=== PATIENT | female | born 1985 | race Caucasian/White ===

== ENCOUNTER 2016-11-07 03:58 | Emergency (ER) | payer MEDICAID ==
[2016-11-07] MEDS ORDERED: NAPROXEN 250 MG TABLET PO ONE (04:17)
--- NOTE | 2016-11-07 04:22 | Emergency Department Record ---
History of Present Illness - General Chief Complaint: Chest Pain Stated Complaint: CHEST PAIN/HARD TO BREATH Time Seen by Provider: 11/07/16 04:16 Source: Patient Mode of Arrival: Ambulatory Limitations: No limitations - History of Present Illness Initial Comments: 31 yo female presents to ED with a CC of mid-sternal chest pain that began 2 hours ago, woke her up from sleep. Patient reports pain with inspiration and trunk movement. Patient denies health problems at her baseline, and denies any fevers, chills, or recent illness. Patient denies h/o DVT, denies tara swelling or pain, denies recent surgery, and denies OCPs. MD Complaint: Chest pain Onset/Timin -: Hour(s) Onset: Awoke with symptoms Pain Location: Substernal Severity scale (1-10): 7 Quality: Sharp Consistency: Constant, Getting worse Worsens With: Inspiration - Related Data On Oral Contraceptives: No Previous Rx's Medication Instructions Recorded Naproxen [Naprosyn] 500 mg PO Q12H #30 tab. 11/07/16 Allergies Allergy/AdvReac Type Severity Reaction Status Date / Time No Known Drug Allergies Allergy Verified 02/13/14 21:06 Travel Screening - Travel/Exposure Within Last 30 Days Have you traveled within the last 30 days?: No Review of Systems Constitutional: Denies: Chills, Fever, Malaise, Night sweats Eyes: Denies: Eye discharge, Eye pain, Photophobia ENT: Denies: Congestion, Ear pain, Epistaxis Respiratory: Denies: Cough, Dyspnea Cardiovascular: Reports: Chest pain. Denies: Dyspnea on exertion, Palpitations Endocrine: Denies: Fatigue, Heat or cold intolerance Gastrointestinal: Denies: Abdominal pain, Nausea, Vomiting Genitourinary: Denies: Dysuria, Frequency, Hematuria, Incontinence Musculoskeletal: Denies: Arthralgia, Back pain, Gout, Joint swelling Skin: Denies: Bruising, Change in color, Change in hair/nails Neurological: Denies: Abnormal gait, Confusion, Headache, Seizure Psychiatric: Denies: Anxiety Hematological/Lymphatic: Denies: Anemia, Blood Clots Past Medical History - SOCIAL HISTORY Smoking Status: Current every day smoker Alcohol Use: None Drug Use: None - RESPIRATORY Hx Respiratory Disorders: No - CARDIOVASCULAR Hx Cardio Disorders: No - NEURO Hx Neuro Disorders: No - GI Hx GI Disorders: No - Hx Genitourinary Disorders: No - ENDOCRINE Hx Endocrine Disorders: No - MUSCULOSKELETAL Hx Musculoskeletal Disorders: No - PSYCH Hx Psych Problems: No - HEMATOLOGY/ONCOLOGY Hx Hematology/Oncology Disorders: No Family Medical History Any Significant Family History?: Yes Hx Cancer: Grandparents Hx Diabetes: Grandparents Hx Heart Disease: Grandparents Hx Stroke: Grandparents *Stroke Comment: cousin Physical Exam - General General Appearance: Alert, Oriented x3, Cooperative, No acute distress, Anxious Limitations: No limitations - Head Head exam: Atraumatic, Normocephalic, Normal inspection Head exam detail: negative: Abrasion, Contusion, Valdes's sign, General tenderness, Hematoma, Laceration - Eye Eye exam: Normal appearance. negative: Conjunctival injection, Periorbital swelling, Periorbital tenderness, Scleral icterus - ENT Ear exam: negative: Auricular hematoma, Auricular trauma Nasal Exam: negative: Active bleeding, Discharge, Dried blood, Foreign body Mouth exam: negative: Drooling, Laceration, Muffled voice, Tongue elevation - Neck Neck exam: Normal inspection. negative: Meningismus, Tenderness - Respiratory Respiratory exam: Normal lung sounds bilaterally. negative: Rales, Respiratory distress, Rhonchi, Stridor - Cardiovascular Cardiovascular Exam: Regular rate, Normal rhythm, Normal heart sounds - GI/Abdominal GI/Abdominal exam: Soft. negative: Rebound, Rigid, Tenderness - Rectal Rectal exam: Deferred - exam: Deferred - Extremities Extremities exam: Normal inspection. negative: Calf tenderness, Pedal edema, Tenderness - Back Back exam: Denies: CVA tenderness (R), CVA tenderness (L) - Neurological Neurological exam: Alert, Normal gait, Oriented X3 - Psychiatric Psychiatric exam: Anxious - Skin Skin exam: Normal color. negative: Abrasion Type of lesion: negative: abrasion Course Vital Signs 11/07/16 04:08 Pulse Rate [ 67 Pulse Ox Probe] Respiratory 18 Rate Blood Pressure 139/94 [Left Arm] Pulse Ox 98 - Reevaluation(s) Reevaluation #1: 11/07/16 04:20 EKG: NSR 60 Normal axis, normal intervals No acute ST-T wave changes No change from 02/13/14 Patient is PERC negative on examination, D-Dimer is not indicated. Reevaluation #2: 11/07/16 04:29 CXR: No acute process. Patient as no significant risk factors for CAD, normal EKG< normal CXR, and is PERC negative. Patient's symptoms are therefore likely secondary to chest wall strain/pain. Patient appears stable for discharge on Naprosyn for her chest pain symptoms with instructions for follow-up in 3-5 days with her PCP. Disposition Disposition: Discharge Clinical Impression: Chest wall pain Disposition: Home, Self-Care Condition: (2) Stable Instructions: Costochondritis (ED) Additional Instructions: Return to ED if your symptoms worsen or if you have any concerns. Follow-up with your family doctor in 3-5 days as directed. Naprosyn as directed. Prescriptions: Naproxen [Naprosyn] 500 mg PO Q12H #30 tab.dr Forms: Patient Portal Access Time of Disposition: 04:31
== END 2016-11-07 04:39 | disposition home or self-care (01) ==
LOC: ER 03:58
DX: R07.89 Other chest pain (principal)
CPT/HCPCS: 71020; 93005; 93010; 99284

== ENCOUNTER 2016-12-20 09:08 | Emergency (ER) | payer MEDICAID ==
--- NOTE | 2016-12-20 09:39 | Emergency Department Record ---
History of Present Illness - General Chief complaint: ENT Stated complaint: EAR PAIN Time Seen by Provider: 12/20/16 09:35 Source: Patient Mode of Arrival: Ambulatory Limitations: No limitations - History of Present Illness Initial comments: 31 yo female presents to ED with a CC of right ear pain that began last night. Patient denies drainage from the ear, denies change in hearing or trauma to the ear. Patient denies health problems at her health problems. complaint: Ear pain Onset/Timin -: Days(s) Location: R ear Severity: Moderate Severity scale (1-10): 5 Quality: Aching, Sharp Consistency: Constant Improves with: None Worsens with: None - Related Data Home Medications Medication Instructions Recorded Confirmed Last Taken Cyclobenzaprine HCl [Flexeril] 10 mg PO DAILY 12/20/16 12/20/16 Unknown Dextroamphetamine/Amphetamine 10 mg PO BID 12/20/16 12/20/16 Unknown [Adderall] Previous Rx's Medication Instructions Recorded Neomycin/Polymyxin B Sulf/Hc 10 ml OT QID #1 bottle 12/20/16 [Paspjjxx-Bnkbemfam-Hm Ear Susp] Allergies Allergy/AdvReac Type Severity Reaction Status Date / Time No Known Drug Allergies Allergy Verified 02/13/14 21:06 Travel Screening - Travel/Exposure Within Last 30 Days Have you traveled within the last 30 days?: No Review of Systems Constitutional: Denies: Chills, Fever, Malaise, Night sweats Eyes: Denies: Eye discharge, Eye pain ENT: Reports: Ear pain. Denies: Congestion Respiratory: Denies: Cough, Dyspnea Cardiovascular: Denies: Chest pain, Dyspnea on exertion Endocrine: Denies: Fatigue, Heat or cold intolerance Gastrointestinal: Denies: Abdominal pain, Nausea, Vomiting Genitourinary: Denies: Dysuria, Frequency, Hematuria, Incontinence Musculoskeletal: Denies: Arthralgia, Back pain, Gout, Joint swelling Skin: Denies: Bruising, Change in color Neurological: Denies: Abnormal gait, Confusion, Headache, Seizure Psychiatric: Denies: Anxiety Hematological/Lymphatic: Denies: Anemia, Blood Clots Past Medical History - SOCIAL HISTORY Smoking Status: Current every day smoker Alcohol Use: None Drug Use: None - RESPIRATORY Hx Respiratory Disorders: No - CARDIOVASCULAR Hx Cardio Disorders: No - NEURO Hx Neuro Disorders: Yes Comment:: narcolepsy - GI Hx GI Disorders: No - Hx Genitourinary Disorders: No - ENDOCRINE Hx Endocrine Disorders: No - MUSCULOSKELETAL Hx Musculoskeletal Disorders: No - PSYCH Hx Psych Problems: No - HEMATOLOGY/ONCOLOGY Hx Hematology/Oncology Disorders: No Family Medical History Any Significant Family History?: Yes Hx Cancer: Grandparents Hx Diabetes: Grandparents Hx Heart Disease: Grandparents Hx Stroke: Grandparents *Stroke Comment: cousin Physical Exam - General General Appearance: Alert, Oriented x3, Cooperative, No acute distress Limitations: No limitations - Head Head exam: Atraumatic, Normocephalic, Normal inspection Head exam detail: negative: Abrasion, Contusion, Valdes's sign, General tenderness, Hematoma, Laceration - Eye Eye exam: Normal appearance. negative: Conjunctival injection, Periorbital swelling, Periorbital tenderness, Scleral icterus - ENT Ear exam: External canal tenderness, Other (TM appears normal bilaterally). negative: Auricular hematoma, Auricular trauma Nasal Exam: negative: Active bleeding, Discharge, Dried blood, Foreign body Mouth exam: negative: Drooling, Laceration, Muffled voice, Tongue elevation - Neck Neck exam: Normal inspection. negative: Meningismus, Tenderness - Respiratory Respiratory exam: Normal lung sounds bilaterally. negative: Rales, Respiratory distress, Rhonchi, Stridor - Cardiovascular Cardiovascular Exam: Regular rate, Normal rhythm, Normal heart sounds - GI/Abdominal GI/Abdominal exam: Soft. negative: Rebound, Rigid, Tenderness - Rectal Rectal exam: Deferred - exam: Deferred - Back Back exam: Reports: Normal inspection. Denies: CVA tenderness (R), CVA tenderness (L) - Neurological Neurological exam: Alert, Normal gait, Oriented X3 - Psychiatric Psychiatric exam: Normal affect, Normal mood - Skin Skin exam: Normal color. negative: Abrasion Type of lesion: negative: abrasion Course Vital Signs 12/20/16 09:14 Temperature 97.7 F Pulse Rate [ 68 Pulse Ox Probe] Respiratory 20 Rate Blood Pressure 97/57 [Left Arm] Pulse Ox 97 - Reevaluation(s) Reevaluation #1: 12/20/16 09:44 History and examination appear c/w otitis externa, will prescribe polymyxin drops for her external ear infection with instructions for follow-up. Disposition Disposition: Discharge Clinical Impression: Otitis externa Qualifiers: Otitis externa type: unspecified type Laterality: right Chronicity: acute Qualified Code(s): H60.501 - Unspecified acute noninfective otitis externa, right ear Disposition: Home, Self-Care Condition: (2) Stable Instructions: Otitis Externa (ED) Additional Instructions: Return to ED if your symptoms worsen or if you have any concerns. Polymyxin as directed. Follow-up with your family doctor in 3-5 days as directed. Prescriptions: Neomycin/Polymyxin B Sulf/Hc [Ucdslqng-Amhalqnym-Ww Ear Susp] 10 ml OT QID #1 bottle Forms: Patient Portal Access Time of Disposition: 09:39
== END 2016-12-20 09:48 | disposition home or self-care (01) ==
LOC: ER 09:08
DX: H60.501 Unspecified acute noninfective otitis externa, right ear (principal)
CPT/HCPCS: 99282

== ENCOUNTER 2017-01-07 17:59 | Emergency (ER) | payer MEDICAID ==
[2017-01-07] MEDS ORDERED: POLYMYXIN B SULF/TRIMETHOPRIM 10ML BTL OPTH ONE (18:17)
[2017-01-07] MEDS ORDERED: AZITHROMYCIN 500 MG TABLET PO ONE (18:17)
--- NOTE | 2017-01-07 18:24 | Emergency Department Record ---
History of Present Illness - General Chief complaint: Eye Problem Stated complaint: POSS PINK EYE Time Seen by Provider: 01/07/17 18:17 Source: Patient Mode of Arrival: Ambulatory Limitations: No limitations - History of Present Illness Initial comments: 31 yo female presents with left ear pain, sore throat and redness to the left eye. She does not wear contacts. No fevers. She has noticed some swollen glands on the left. No vision changes. No drainage or crusting of the eye. No cough. MD chief complaint: Eye pain, Other (ear pain, sore throat) Onset/Timin -: Days(s) Location: Left eye If Injury: None Eye Symptoms: Redness If Pain, Quality: Aching Consistency: Constant Context: Sore throat Associated Symptoms: None Treatments Prior to Arrival: None - Related Data Home Medications Medication Instructions Recorded Confirmed Last Taken Cyclobenzaprine HCl [Flexeril] 10 mg PO DAILY 12/20/16 01/07/17 12/06/16 Dextroamphetamine/Amphetamine 10 mg PO BID 12/20/16 01/07/17 01/07/17 [Adderall] Previous Rx's Medication Instructions Recorded Azithromycin [Zithromax] 250 mg PO DAILY #4 tab 01/07/17 Allergies Allergy/AdvReac Type Severity Reaction Status Date / Time No Known Drug Allergies Allergy Verified 01/07/17 18:06 Travel Screening - Travel/Exposure Within Last 30 Days Have you traveled within the last 30 days?: No - Travel/Exposure Within Last Year Have you traveled outside the [place] in the last year?: No - Additonal Travel Details Have you been exposed to anyone with a communicable illness?: No - Travel Symptoms Symptom Screening: None Review of Systems Constitutional: Denies: Chills, Fever, Malaise, Weakness Eyes: Reports: Other (Redness and irritation). Denies: Eye discharge, Eye pain , Photophobia, Vision change ENT: Reports: Congestion, Ear pain, Throat pain. Denies: Dental pain, Epistaxis , Hearing loss Respiratory: Denies: Cough, Dyspnea Cardiovascular: Denies: Chest pain, Syncope Endocrine: Denies: Fatigue Gastrointestinal: Denies: Abdominal pain, Diarrhea, Nausea, Vomiting Genitourinary: Denies: Dyspareunia, Dysuria, Urgency Musculoskeletal: Denies: Arthralgia, Back pain, Myalgia, Neck pain Skin: Denies: Bruising, Change in color, Rash Neurological: Denies: Confusion, Headache, Numbness, Paresthesias Psychiatric: Denies: Anxiety Hematological/Lymphatic: Denies: Blood Clots, Easy bleeding, Easy bruising, Swollen glands Past Medical History - SOCIAL HISTORY Smoking Status: Current every day smoker Drug Use: None - RESPIRATORY Hx Respiratory Disorders: No - CARDIOVASCULAR Hx Cardio Disorders: No - NEURO Hx Neuro Disorders: Yes Comment:: narcolepsy - GI Hx GI Disorders: No - Hx Genitourinary Disorders: No - ENDOCRINE Hx Endocrine Disorders: No - MUSCULOSKELETAL Hx Musculoskeletal Disorders: No - PSYCH Hx Psych Problems: No - HEMATOLOGY/ONCOLOGY Hx Hematology/Oncology Disorders: No Family Medical History Hx Cancer: Grandparents Hx Diabetes: Grandparents Hx Heart Disease: Grandparents Hx Stroke: Grandparents *Stroke Comment: cousin Physical Exam - General General Appearance: Alert, Oriented x3, Cooperative, No acute distress Limitations: No limitations - Head Head exam: Normal inspection - Eye Eye exam: PERRL, Conjunctival injection (very mild on the left, no lid edema), EOMI. negative: Normal appearance, Periorbital swelling, Periorbital tenderness Pupils: Normal accommodation, Other (No stain uptake with Wood's lamp). negative: Irregular, Unequal - ENT ENT exam: Mucous membranes moist, TM's normal bilaterally (mild left TM erythema with possible tiny posterior perforation, no pus or drainage). negative: Normal exam, Normal orophraynx Ear exam: Normal external inspection Nasal Exam: Normal inspection. negative: Discharge, Sinus tenderness Mouth exam: Normal external inspection, Tongue normal Teeth exam: Normal inspection. negative: Dental caries Throat exam: Tonsillar erythema, Tonsillar exudate (few very small 3mm patchs). negative: Normal inspection, Tonsillomegaly, R peritonsillar mass, L peritonsillar mass - Neck Neck exam: Normal inspection, Full ROM, Lymphadenopathy (few small left anterior mobile soft ). negative: Tenderness - Respiratory Respiratory exam: Normal lung sounds bilaterally. negative: Respiratory distress - Cardiovascular Cardiovascular Exam: Regular rate, Normal rhythm, Normal heart sounds - Rectal Rectal exam: Deferred - exam: Deferred - Extremities Extremities exam: Normal inspection. negative: Pedal edema - Back Back exam: Reports: Normal inspection, Full ROM. Denies: Muscle spasm, Rash noted, Tenderness - Neurological Neurological exam: Alert, Normal gait, Oriented X3 - Psychiatric Psychiatric exam: Normal affect, Normal mood. negative: Agitated, Anxious - Skin Skin exam: Dry, Intact, Normal color, Warm Course Vital Signs 01/07/17 18:06 Temperature 98 F Pulse Rate 77 Respiratory 18 Rate Blood Pressure 110/47 Pulse Ox 97 Disposition Disposition: Discharge Clinical Impression: Conjunctivitis Qualifiers: Conjunctivitis type: unspecified Laterality: left Qualified Code(s): H10.9 - Unspecified conjunctivitis Pharyngitis Qualifiers: Pharyngitis/tonsillitis etiology: unspecified etiology Qualified Code(s): J02.9 - Acute pharyngitis, unspecified Disposition: Home, Self-Care Condition: (1) Good Instructions: Conjunctivitis (ED), Pharyngitis (ED) Additional Instructions: Recheck mid week with your doctor if not improving Apply the eye drops every 4 hours Wash hands frequently as this can be contagious Prescriptions: Azithromycin [Zithromax] 250 mg PO DAILY #4 tab Forms: Patient Portal Access Time of Disposition: 18:25
== END 2017-01-07 19:31 | disposition home or self-care (01) ==
LOC: ER 17:59
DX: H10.9 Unspecified conjunctivitis (principal); J02.9 Acute pharyngitis, unspecified; H92.02 Otalgia, left ear; F17.210 Nicotine dependence, cigarettes, uncomplicated
CPT/HCPCS: 99283

== ENCOUNTER 2017-01-10 20:14 | Emergency (ER) | payer MEDICAID ==
[2017-01-10 20:48] LABS: BASO % 0.3 % (0-6); EOS % 1.1 % (0-6); GRAN % 69.6 % (47-80); HEMATOCRIT 34.2 % (35.0-47.0); HEMOGLOBIN 10.6 gm/dl (11.6-16.0); LYMPH % 21.8 % (16-45); MEAN CORPUSCULAR HEMOGLOBIN 25.1 pg (27-33); MEAN PLATELET VOLUME 12.8 fl (7.4-10.4); MONO % 7.2 % (0-9); PLATELET COUNT 218 K/uL (130-400); RED BLOOD COUNT 4.22 M/uL (3.80-5.40); RED CELL DISTRIBUTION WIDTH 14.9 % (11.5-14.5); WHITE BLOOD COUNT W/O DIFF 7.2 K/uL (4.2-12.2)
[2017-01-10 21:00] LABS: ANION GAP 10.7 (7-16); BLOOD UREA NITROGEN 11 mg/dL (7-17); CARBON DIOXIDE 22.3 mmol/L (22-30); CREATININE 0.6 mg/dL (0.52-1.04); EST GLOMERULAR FILTRATION RATE > 60 ml/min; GLUCOSE,RANDOM 329 mg/dL (70-110); INR 0.96; PROTHROMBIN TIME (PATIENT) 10.9 SECONDS (9.5-12.1)
[2017-01-10] MEDS ORDERED: 0.9 % SODIUM CHLORIDE 1,000 ML BAG IV ONE (21:05)
--- NOTE | 2017-01-10 21:22 | Emergency Department Record ---
History of Present Illness - General Chief complaint: Vaginal bleeding Stated complaint: heavy vaginal bleeding Time Seen by Provider: 01/10/17 20:27 Source: Patient Mode of Arrival: Ambulatory Limitations: No limitations - History of Present Illness Initial comments: pt has had vaginal bleeding for 10 days that is getting worse. she passed a clot the size of a plate tonight. she has been going through a pad an hour. she was at her field service tech yesterday and had bloodwork. she has an us scheduled. the thermodynamicist had discussed starting her on hormones. pt became concerned today when she passed large clot Complaint: Vaginal bleeding Onset/Timin -: Hour(s) Severity: Mild Consistency: Constant Improves with: None Worsens with: None LMP Date: 12/30/16 Gestational Age (wks) based on LMP: 1 Associated Symptoms: Denies other symptoms, Vaginal bleeding - Related Data Home Medications Medication Instructions Recorded Confirmed Last Taken Cyclobenzaprine HCl [Flexeril] 10 mg PO DAILY 12/20/16 01/10/17 12/06/16 Dextroamphetamine/Amphetamine 10 mg PO BID 12/20/16 01/10/17 01/07/17 [Adderall] Eye Drops For [place] [facility] 1 drop OPTH ASDIR 01/10/17 01/10/17 Unknown Previous Rx's Medication Instructions Recorded Azithromycin [Zithromax] 250 mg PO DAILY #4 tab 01/07/17 Allergies Allergy/AdvReac Type Severity Reaction Status Date / Time No Known Drug Allergies Allergy Verified 01/07/17 18:06 Travel Screening - Travel/Exposure Within Last 30 Days Have you traveled within the last 30 days?: No - Travel/Exposure Within Last Year Have you traveled outside the [place] in the last year?: No - Additonal Travel Details Have you been exposed to anyone with a communicable illness?: No - Travel Symptoms Symptom Screening: None Review of Systems Reviewed: No additional complaints except as noted below Constitutional: Reports: As per HPI. Denies: Chills, Fever, Malaise, Night sweats, Weakness, Weight change Eyes: Reports: As per HPI. Denies: Eye discharge, Eye pain, Photophobia, Vision change ENT: Reports: As per HPI. Denies: Congestion, Dental pain, Ear pain, Epistaxis , Hearing loss, Throat pain Respiratory: Reports: As per HPI. Denies: Cough, Dyspnea, Hemoptysis, Stridor, Wheezes Cardiovascular: Reports: As per HPI. Denies: Arrhythmia, Chest pain, Dyspnea on exertion, Edema, Murmurs, Orthopnea, Palpitations, Paroxysmal nocturnal dyspnea, Rheumatic Fever, Syncope Endocrine: Reports: As per HPI. Denies: Fatigue, Heat or cold intolerance, Polydipsia, Polyuria Gastrointestinal: Reports: As per HPI. Denies: Abdominal pain, Constipation, Diarrhea, Hematemesis, Hematochezia, Melena, Nausea, Vomiting Genitourinary: Reports: As per HPI. Denies: Abnormal menses, Discharge, Dyspareunia, Dysuria, Frequency, Hematuria, Incontinence, Retention, Urgency Musculoskeletal: Reports: As per HPI. Denies: Arthralgia, Back pain, Gout, Joint swelling, Myalgia, Neck pain Skin: Reports: As per HPI. Denies: Bruising, Change in color, Change in hair/ nails, Lesions, Pruritus, Rash Neurological: Reports: As per HPI. Denies: Abnormal gait, Confusion, Headache, Numbness, Paresthesias, Seizure, Tingling, Tremors, Vertigo, Weakness Psychiatric: Reports: As per HPI. Denies: Anxiety, Auditory hallucinations, Depression, Homicidal thoughts, Suicidal thoughts, Visual hallucinations Hematological/Lymphatic: Reports: As per HPI. Denies: Anemia, Blood Clots, Easy bleeding, Easy bruising, Swollen glands Past Medical History - SOCIAL HISTORY Smoking Status: Current every day smoker Alcohol Use: None Drug Use: None - RESPIRATORY Hx Respiratory Disorders: No - CARDIOVASCULAR Hx Cardio Disorders: No - NEURO Hx Neuro Disorders: Yes Comment:: narcolepsy - GI Hx GI Disorders: No - Hx Genitourinary Disorders: No - ENDOCRINE Hx Endocrine Disorders: Yes Hx Diabetes: Yes - MUSCULOSKELETAL Hx Musculoskeletal Disorders: No - PSYCH Hx Psych Problems: No - HEMATOLOGY/ONCOLOGY Hx Hematology/Oncology Disorders: No Family Medical History Any Significant Family History?: No Hx Cancer: Grandparents Hx Diabetes: Grandparents Hx Heart Disease: Grandparents Hx Stroke: Grandparents *Stroke Comment: cousin Physical Exam - General General Appearance: Alert, Oriented x3, Cooperative, Mild distress - Head Head exam: Normal inspection - Eye Eye exam: Normal appearance, PERRL, EOMI Pupils: Normal accommodation - ENT ENT exam: Normal exam, Mucous membranes moist, Normal external ear exam, Normal orophraynx, TM's normal bilaterally Ear exam: Normal external inspection. negative: External canal tenderness Nasal Exam: Normal inspection. negative: Discharge, Sinus tenderness Mouth exam: Normal external inspection, Tongue normal Teeth exam: Normal inspection. negative: Dental caries Throat exam: Normal inspection. negative: Tonsillar erythema, Tonsillar exudate - Neck Neck exam: Normal inspection, Full ROM. negative: Tenderness - Respiratory Respiratory exam: Normal lung sounds bilaterally. negative: Respiratory distress - Cardiovascular Cardiovascular Exam: Regular rate, Normal rhythm, Normal heart sounds - GI/Abdominal GI/Abdominal exam: Soft, Normal bowel sounds. negative: Tenderness - Rectal Rectal exam: Deferred - exam: Normal external exam, Vaginal bleeding (mild to moderate, no clots) - Extremities Extremities exam: Normal inspection, Full ROM, Normal capillary refill. negative: Tenderness - Back Back exam: Reports: Normal inspection, Full ROM. Denies: Muscle spasm, Rash noted, Tenderness - Neurological Neurological exam: Alert, CN II-XII intact, Normal gait, Oriented X3 - Psychiatric Psychiatric exam: Normal affect, Normal mood - Skin Skin exam: Dry, Intact, Normal color, Warm Course Vital Signs 01/10/17 01/10/17 20:16 20:20 Temperature 97.6 F 97.6 F Pulse Rate 76 Pulse Rate [ 76 Pulse Ox Probe] Respiratory 20 20 Rate Blood Pressure 109/46 Blood Pressure 109/46 [Left Arm] Pulse Ox 99 100 Medical Decision Making - Lab Data Result diagrams: 01/10/17 20:45 01/10/17 20:45 Lab Results 01/10/17 01/10/17 01/10/17 Range/Units 20:45 20:45 20:45 WBC 7.2 (4.2-12.2) K/uL RBC 4.22 (3.80-5.40) M/uL Hgb 10.6 L (11.6-16.0) gm/dl Hct 34.2 L (35.0-47.0) % MCV 81.0 (81-97) fl MCH 25.1 L (27-33) pg MCHC 31.0 L (32-36) g/dl RDW 14.9 H (11.5-14.5) % Plt Count 218 (130-400) K/uL MPV 12.8 H (7.4-10.4) fl Gran % 69.6 (47-80) % Lymphocytes % 21.8 (16-45) % Monocytes % 7.2 (0-9) % Eosinophils % 1.1 (0-6) % Basophils % 0.3 (0-6) % PT 10.9 (9.5-12.1) SECONDS INR 0.96 APTT 28.00 (24.5-39.1) SECONDS Sodium 136 (136-145) mmol/L Potassium 4.1 (3.5-5.1) mmol/L Chloride 103 (98-107) mmol/L Carbon Dioxide 22.3 (22-30) mmol/L Anion Gap 10.7 (7-16) BUN 11 (7-17) mg/dL Creatinine 0.6 (0.52-1.04) mg/dL Estimated GFR > 60 ml/min Random Glucose 329 H (70-110) mg/dL Calcium 9.2 (8.5-10.1) mg/dL Disposition Disposition: Discharge Clinical Impression: Dysfunctional uterine bleeding Disposition: Home, Self-Care Condition: (1) Good Instructions: Dysfunctional Uterine Bleeding (ED) Additional Instructions: follow up with field service tech tomorrow. rest. return sooner if worse. rest. Forms: Patient Portal Access, Return to Work/School
[2017-01-10 21:28] LABS: URINE APPEARANCE CLEAR; URINE BILIRUBIN SMALL (NEGATIVE); URINE BLOOD LARGE (NEGATIVE); URINE COLOR YELLOW; URINE KETONE NEGATIVE (NEGATIVE); URINE LEUKOCYTE ESTERASE NEGATIVE (NEGATIVE); URINE NITRITE NEGATIVE (NEGATIVE)
[2017-01-10 22:08] LABS: URINE GLUCOSE (UA) >=1000 mg/dL (NEGATIVE)
[2017-01-10 22:10] LABS: HCG,QUALITATIVE URINE NEGATIVE (NEGATIVE); URINE BACTERIA NONE SEEN; URINE RBC >50 (NONE SEEN); URINE WBC 0 - 2 (0-2/hpf)
== END 2017-01-10 22:21 | disposition home or self-care (01) ==
LOC: ER 20:14
DX: N93.8 Other specified abnormal uterine and vaginal bleeding (principal)
CPT/HCPCS: 80048; 81001; 81025; 85025; 85610; 85730; 99283; J7030

== ENCOUNTER 2017-09-11 02:15 | Emergency (ER) | payer MEDICAID ==
[2017-09-11] MEDS ORDERED: PENICILLIN V POTASSIUM 250 MG TAB PO ONE (02:22)
--- NOTE | 2017-09-11 02:28 | Emergency Department Record ---
History of Present Illness - General Chief complaint: Dental Stated complaint: DENTAL ABSCESS Source: Patient Mode of Arrival: Ambulatory Limitations: No limitations - History of Present Illness Initial comments: 32 yo female presents to ED for evaluation of dental pain symptoms to the right upper jaw that began earlier last night. Patient denies fevers, chills, or recent illness and reports that she has a dental appointment later in the week. Patient did take Motrin 800 mg prior to arrival. MD complaint: Tooth pain Onset/Timin -: Days(s) Quality: Aching Consistency: Constant Improves with: None Worsens with: None Context- Dental: History of dental caries - Related Data Previous Rx's Medication Instructions Recorded Penicillin V Potassium 500 mg PO QID #27 tablet 09/11/17 Allergies Allergy/AdvReac Type Severity Reaction Status Date / Time No Known Drug Allergies Allergy Unverified 08/04/17 18:14 Review of Systems Constitutional: Denies: Chills, Fever, Malaise, Night sweats Eyes: Denies: Eye discharge, Eye pain ENT: Reports: Dental pain. Denies: Congestion, Ear pain, Epistaxis Respiratory: Denies: Cough, Dyspnea, Hemoptysis Cardiovascular: Denies: Chest pain, Dyspnea on exertion Endocrine: Denies: Fatigue, Heat or cold intolerance Gastrointestinal: Denies: Abdominal pain, Nausea, Vomiting Genitourinary: Denies: Incontinence, Retention Musculoskeletal: Denies: Arthralgia, Back pain, Gout, Joint swelling Skin: Denies: Bruising, Change in color Neurological: Denies: Abnormal gait, Confusion, Headache, Seizure Psychiatric: Denies: Anxiety Hematological/Lymphatic: Denies: Anemia, Blood Clots Past Medical History - SOCIAL HISTORY Smoking Status: Current every day smoker Drug Use: None - RESPIRATORY Hx Respiratory Disorders: No - CARDIOVASCULAR Hx Cardio Disorders: No - NEURO Hx Neuro Disorders: Yes Comment:: narcolepsy - GI Hx GI Disorders: No - Hx Genitourinary Disorders: No - ENDOCRINE Hx Endocrine Disorders: Yes Hx Diabetes: Yes - MUSCULOSKELETAL Hx Musculoskeletal Disorders: No - PSYCH Hx Psych Problems: No - HEMATOLOGY/ONCOLOGY Hx Hematology/Oncology Disorders: No Family Medical History Hx Cancer: Grandparents Hx Diabetes: Grandparents Hx Heart Disease: Grandparents Hx Stroke: Grandparents *Stroke Comment: cousin Physical Exam - General General Appearance: Alert, Oriented x3, Cooperative, Moderate distress Limitations: No limitations - Head Head exam: Atraumatic, Normocephalic, Normal inspection Head exam detail: negative: Abrasion, Contusion, Valdes's sign, General tenderness, Hematoma, Laceration - Eye Eye exam: Normal appearance. negative: Conjunctival injection, Periorbital swelling, Periorbital tenderness, Scleral icterus - ENT Ear exam: negative: Auricular hematoma, Auricular trauma Nasal Exam: negative: Active bleeding, Discharge, Dried blood, Foreign body Mouth exam: negative: Drooling, Laceration, Muffled voice, Tongue elevation Teeth exam: Dental caries, Dental tenderness #. negative: Fractured tooth #, Gingival enlargement Throat exam: negative: Tonsillar erythema, Tonsillomegaly, R peritonsillar mass , L peritonsillar mass - Neck Neck exam: Normal inspection. negative: Meningismus, Tenderness - Respiratory Respiratory exam: Normal lung sounds bilaterally. negative: Rales, Respiratory distress, Rhonchi, Stridor - Cardiovascular Cardiovascular Exam: Regular rate, Normal rhythm, Normal heart sounds - GI/Abdominal GI/Abdominal exam: Soft. negative: Rebound, Rigid, Tenderness - Rectal Rectal exam: Deferred - exam: Deferred - Extremities Extremities exam: Normal inspection. negative: Calf tenderness, Pedal edema, Tenderness - Back Back exam: Denies: CVA tenderness (R), CVA tenderness (L) - Neurological Neurological exam: Alert, Normal gait, Oriented X3 - Psychiatric Psychiatric exam: Anxious, Normal mood - Skin Skin exam: Normal color. negative: Abrasion Type of lesion: negative: abrasion Course Vital Signs 09/11/17 02:20 Temperature 97.6 F Pulse Rate [ 73 Pulse Ox Probe] Respiratory 20 Rate Blood Pressure 129/87 [Left Arm] Pulse Ox 96 - Reevaluation(s) Reevaluation #1: 09/11/17 02:26 Offered the patient dental block for her pain symptoms, patient declined. Will initiate treatment with Pen VK as directed with instructions for dental follow-up this week. Disposition Disposition: Discharge Clinical Impression: Pain, dental Disposition: Home, Self-Care Condition: (2) Stable Instructions: Dental Abscess (ED) Additional Instructions: Return to ED if your symptoms worsen or if you have any concerns. Pen VK as directed. Follow-up with your dentist in 1-3 days as directed. Prescriptions: Penicillin V Potassium 500 mg PO QID #27 tablet Forms: Patient Portal Access Time of Disposition: 02:28 Quality - Quality Measures Quality Measures: N/A - Blood Pressure Screening Does Patient Have Any of the Following: No Blood Pressure Classification: Pre-Hypertensive BP Reading Systolic Measurement: 129 Diastolic Measurement: 87 Screening for High Blood Pressure: < Pre-Hypertensive BP, F/U Documented > [ G8950] Pre-Hypertensive Follow-up Interventions: Referral to alternative/primary care provider.
== END 2017-09-11 02:40 | disposition home or self-care (01) ==
LOC: ER 02:15
DX: K08.89 Other specified disorders of teeth and supporting structures (principal); F17.210 Nicotine dependence, cigarettes, uncomplicated
CPT/HCPCS: 99282

== ENCOUNTER 2017-10-21 05:41 | Emergency (ER) | payer MEDICAID ==
[2017-10-21] MEDS ORDERED: DIPHENHYDRAMINE HCL 25 MG CAPSULE PO ONE (06:04)
[2017-10-21] MEDS ORDERED: PREDNISONE 20 MG TAB PO ONE (06:04)
--- NOTE | 2017-10-21 06:04 | Emergency Department Record ---
History of Present Illness - General Chief complaint: Allergic Reaction Stated complaint: ALLERGIC REACTION Time Seen by Provider: 10/21/17 05:55 Source: Patient, RN notes reviewed Mode of Arrival: Ambulatory - History of Present Illness Initial Comments: hands are itching and swollen and it started yesterday noon. New pipe cleaner 2500 she used it. Primary is Dr. aranda in [place]. No respiratory problems. Onset/Timin -: Hour(s) Exposure: Other Symptoms: Itching, Rash Severity: Moderate Treatment Prior to Arrival: Benadryl Previous Allergy History: None - Related Data Previous Rx's Medication Instructions Recorded Prednisone [Prednisone 10Mg] 10 mg PO ASDIR #30 tab 10/21/17 Allergies Allergy/AdvReac Type Severity Reaction Status Date / Time No Known Drug Allergies Allergy Unverified 08/04/17 18:14 Travel Screening - Travel/Exposure Within Last 30 Days Have you traveled within the last 30 days?: No Review of Systems Reviewed: No additional complaints except as noted below Constitutional: Reports: As per HPI. Denies: Chills, Fever, Malaise, Night sweats, Weakness, Weight change Eyes: Reports: As per HPI. Denies: Eye discharge, Eye pain, Photophobia, Vision change ENT: Reports: As per HPI. Denies: Congestion, Dental pain, Ear pain, Epistaxis , Hearing loss, Throat pain Respiratory: Reports: As per HPI. Denies: Cough, Dyspnea, Hemoptysis, Stridor, Wheezes Cardiovascular: Reports: As per HPI. Denies: Arrhythmia, Chest pain, Dyspnea on exertion, Edema, Murmurs, Orthopnea, Palpitations, Paroxysmal nocturnal dyspnea, Rheumatic Fever, Syncope Endocrine: Reports: As per HPI. Denies: Fatigue, Heat or cold intolerance, Polydipsia, Polyuria Gastrointestinal: Reports: As per HPI. Denies: Abdominal pain, Constipation, Diarrhea, Hematemesis, Hematochezia, Melena, Nausea, Vomiting Genitourinary: Reports: As per HPI. Denies: Abnormal menses, Discharge, Dyspareunia, Dysuria, Frequency, Hematuria, Incontinence, Retention, Urgency Musculoskeletal: Reports: As per HPI. Denies: Arthralgia, Back pain, Gout, Joint swelling, Myalgia, Neck pain Skin: Reports: As per HPI, Pruritus (of hands). Denies: Bruising, Change in color, Change in hair/nails, Lesions, Rash Neurological: Reports: As per HPI. Denies: Abnormal gait, Confusion, Headache, Numbness, Paresthesias, Seizure, Tingling, Tremors, Vertigo, Weakness Psychiatric: Reports: As per HPI. Denies: Anxiety, Auditory hallucinations, Depression, Homicidal thoughts, Suicidal thoughts, Visual hallucinations Hematological/Lymphatic: Reports: As per HPI. Denies: Anemia, Blood Clots, Easy bleeding, Easy bruising, Swollen glands Past Medical History - SOCIAL HISTORY Smoking Status: Current every day smoker Alcohol Use: None Drug Use: None - RESPIRATORY Hx Respiratory Disorders: No - CARDIOVASCULAR Hx Cardio Disorders: No - NEURO Hx Neuro Disorders: Yes Comment:: narcolepsy - GI Hx GI Disorders: No - Hx Genitourinary Disorders: No - ENDOCRINE Hx Endocrine Disorders: Yes Hx Diabetes: Yes - MUSCULOSKELETAL Hx Musculoskeletal Disorders: No - PSYCH Hx Psych Problems: No - HEMATOLOGY/ONCOLOGY Hx Hematology/Oncology Disorders: No Family Medical History Any Significant Family History?: Yes Hx Cancer: Grandparents Hx Diabetes: Grandparents Hx Heart Disease: Grandparents Hx Stroke: Grandparents *Stroke Comment: cousin Physical Exam - General General Appearance: Alert, Oriented x3, Cooperative, No acute distress - Head Head exam: Normal inspection - Eye Eye exam: Normal appearance, PERRL Pupils: Normal accommodation - ENT ENT exam: Normal exam, Mucous membranes moist, Normal external ear exam, Normal orophraynx, TM's normal bilaterally Ear exam: Normal external inspection. negative: External canal tenderness Nasal Exam: Normal inspection. negative: Discharge, Sinus tenderness Mouth exam: Normal external inspection, Tongue normal Teeth exam: Normal inspection. negative: Dental caries Throat exam: Normal inspection. negative: Tonsillar erythema, Tonsillar exudate - Neck Neck exam: Normal inspection, Full ROM. negative: Tenderness - Respiratory Respiratory exam: Normal lung sounds bilaterally. negative: Respiratory distress - Cardiovascular Cardiovascular Exam: Regular rate, Normal rhythm, Normal heart sounds - GI/Abdominal GI/Abdominal exam: Soft, Normal bowel sounds. negative: Tenderness - Rectal Rectal exam: Deferred - exam: Deferred - Extremities Extremities exam: Normal inspection, Full ROM, Normal capillary refill, Other ( red itchy hands and some swelling). negative: Tenderness - Back Back exam: Reports: Normal inspection, Full ROM. Denies: Muscle spasm, Rash noted, Tenderness - Neurological Neurological exam: Alert, Normal gait, Oriented X3, Reflexes normal - Psychiatric Psychiatric exam: Normal affect, Normal mood - Skin Skin exam: Dry, Intact, Normal color, Warm Course Vital Signs 10/21/17 05:46 Temperature 97.6 F Pulse Rate [ 65 Pulse Ox Probe] Respiratory 20 Rate Blood Pressure 139/95 [Left Arm] Pulse Ox 98 Patient called in to work today suppose to start at 6 am Disposition Clinical Impression: Allergic reaction Qualifiers: Encounter type: initial encounter Qualified Code(s): T78.40XA - Allergy, unspecified, initial encounter Disposition: Home, Self-Care Condition: (1) Good Instructions: Urticaria (ED), Allergies (ED) Additional Instructions: use benadry 25 mg every 6 hours follow up with family in 2 days off work today Prescriptions: Prednisone [Prednisone 10Mg] 10 mg PO ASDIR #30 tab Time of Disposition: 06:07 Quality - Quality Measures Quality Measures: N/A - Blood Pressure Screening Does Patient Have Any of the Following: No Blood Pressure Classification: Hypertensive Reading Systolic Measurement: 139 Diastolic Measurement: 95 Screening for High Blood Pressure: < Pre-Hypertensive BP, F/U Documented > [ G8950] Pre-Hypertensive Follow-up Interventions: Referral to alternative/primary care provider.
--- NOTE | 2017-10-21 06:10 | Emergency Department Record ---
History of Present Illness - General Chief complaint: Allergic Reaction Stated complaint: ALLERGIC REACTION Time Seen by Provider: 10/21/17 05:55 Mode of Arrival: Ambulatory - History of Present Illness Onset/Timin -: Hour(s) Exposure: Other Symptoms: Itching, Rash Severity: Moderate Treatment Prior to Arrival: Benadryl Previous Allergy History: None - Related Data Previous Rx's Medication Instructions Recorded Prednisone [Prednisone 10Mg] 10 mg PO ASDIR #30 tab 10/21/17 Allergies Allergy/AdvReac Type Severity Reaction Status Date / Time No Known Drug Allergies Allergy Unverified 08/04/17 18:14 Travel Screening - Travel/Exposure Within Last 30 Days Have you traveled within the last 30 days?: No Past Medical History - SOCIAL HISTORY Smoking Status: Current every day smoker Alcohol Use: None Drug Use: None - RESPIRATORY Hx Respiratory Disorders: No - CARDIOVASCULAR Hx Cardio Disorders: No - NEURO Hx Neuro Disorders: Yes Comment:: narcolepsy - GI Hx GI Disorders: No - Hx Genitourinary Disorders: No - ENDOCRINE Hx Endocrine Disorders: Yes Hx Diabetes: Yes - MUSCULOSKELETAL Hx Musculoskeletal Disorders: No - PSYCH Hx Psych Problems: No - HEMATOLOGY/ONCOLOGY Hx Hematology/Oncology Disorders: No Family Medical History Any Significant Family History?: Yes Hx Cancer: Grandparents Hx Diabetes: Grandparents Hx Heart Disease: Grandparents Hx Stroke: Grandparents *Stroke Comment: cousin Course Vital Signs 10/21/17 05:46 Temperature 97.6 F Pulse Rate [ 65 Pulse Ox Probe] Respiratory 20 Rate Blood Pressure 139/95 [Left Arm] Pulse Ox 98 Disposition Clinical Impression: Allergic reaction Disposition: Home, Self-Care Condition: (1) Good Instructions: Urticaria (ED), Allergies (ED) Additional Instructions: use benadry 25 mg every 6 hours follow up with family in 2 days off work today Prescriptions: Prednisone [Prednisone 10Mg] 10 mg PO ASDIR #30 tab Forms: Patient Portal Access Quality - Quality Measures Quality Measures: N/A - Blood Pressure Screening Does Patient Have Any of the Following: No Blood Pressure Classification: Hypertensive Reading Systolic Measurement: 139 Diastolic Measurement: 95 Screening for High Blood Pressure: < Pre-Hypertensive BP, F/U Documented > [ G8950] Pre-Hypertensive Follow-up Interventions: Referral to alternative/primary care provider.
== END 2017-10-21 06:19 | disposition home or self-care (01) ==
LOC: ER 05:41
DX: T78.40XA Allergy, unspecified, initial encounter (principal); R21 Rash and other nonspecific skin eruption; F17.210 Nicotine dependence, cigarettes, uncomplicated
CPT/HCPCS: 99282 ×2; J7512

== ENCOUNTER 2017-12-26 22:47 | Emergency (ER) | payer MEDICAID ==
[2017-12-26] MEDS ORDERED: 0.9 % SODIUM CHLORIDE 1000ML 1,000 ML IV SCH (23:15)
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
[2017-12-26 23:22] LABS: BASO % 0.3 % (0-6); EOS % 0.9 % (0-6); GRAN % 72.8 % (47-80); HEMATOCRIT 38.5 % (35.0-47.0); HEMOGLOBIN 12.5 gm/dl (11.6-16.0); LYMPH % 20.5 % (16-45); MEAN CELL VOLUME 85.9 fl (81-97); MEAN CORPUSCULAR HEMOGLOBIN 27.9 pg (27-33); MEAN CORPUSCULAR HGB CONC 32.5 g/dl (32-36); MEAN PLATELET VOLUME 12.5 fl (7.4-10.4); MONO % 5.5 % (0-9); PLATELET COUNT 165 K/uL (130-400); RED BLOOD COUNT 4.48 M/uL (3.80-5.40); RED CELL DISTRIBUTION WIDTH 15.6 % (11.5-14.5); WHITE BLOOD COUNT W/O DIFF 7.6 K/uL (4.2-12.2)
[2017-12-26 23:30] LABS: BLOOD UREA NITROGEN 13 mg/dL (6-20); CREATININE 0.5 mg/dL (0.5-0.9); EST GLOMERULAR FILTRATION RATE > 60 mL/min
[2017-12-26 23:31] LABS: TOTAL PROTEIN 7.2 g/dL (6.6-8.7)
[2017-12-26 23:33] LABS: GLUCOSE,RANDOM 447 mg/dL (74-109)
[2017-12-26 23:36] LABS: ACETONE,SERUM NEGATIVE (NEGATIVE); ALB/GLOB RATIO 1.5 (1.1-1.8); ALBUMIN 4.3 g/dL (4.0-5.0); ALKALINE PHOSPHATASE 117 U/L (35-104); ALT/SGPT 56 U/L (<33); AST/SGOT 37 U/L (10.0-35.0)
[2017-12-27] MEDS ORDERED: HUMULIN R 100 UNIT/ML VIAL IV ONE
== END 2017-12-27 01:09 | disposition home or self-care (01) ==
LOC: ER 22:47
DX: E11.65 Type 2 diabetes mellitus with hyperglycemia (principal); R55 Syncope and collapse; F17.210 Nicotine dependence, cigarettes, uncomplicated; Z79.84 Long term (current) use of oral hypoglycemic drugs
CPT/HCPCS: 36416; 80053; 82009; 82800; 82948; 85025; 93005; 93010; 96361; 96374; 99284; J7030

== ENCOUNTER 2018-01-29 20:06 | Emergency (ER) | payer MEDICAID ==
[2018-01-29] MEDS ORDERED: IBUPROFEN 600 MG TABLET PO ONE (20:51)
--- NOTE | 2018-01-29 20:56 | Emergency Department Record ---
History of Present Illness - General Chief Complaint: Ankle/Foot Injury Stated Complaint: RT ANKLE PAIN Time Seen by Provider: 01/29/18 20:47 Source: Patient Mode of Arrival: Ambulatory Limitations: No limitations - History of Present Illness Initial Comments: pt inverted r ankle on a step door captain. she heard a pop and has been unable to bear weight Complaint: Ankle injury Onset/Timin -: Minutes(s) Injury: Ankle: Right Type of Injury: Inversion Place: Home Severity: Moderate Severity scale (1-10): 8 Improves With: Nothing Worsens With: Movement, Weight bearing Context: Walking Treatments Prior to Arrival: Cold therapy - Related Data Allergies Allergy/AdvReac Type Severity Reaction Status Date / Time No Known Drug Allergies Allergy Unverified 08/04/17 18:14 Travel Screening - Travel/Exposure Within Last 30 Days Have you traveled within the last 30 days?: No Review of Systems Reviewed: No additional complaints except as noted below Constitutional: Reports: As per HPI. Denies: Chills, Fever, Malaise, Night sweats, Weakness, Weight change Eyes: Reports: As per HPI. Denies: Eye discharge, Eye pain, Photophobia, Vision change ENT: Reports: As per HPI. Denies: Congestion, Dental pain, Ear pain, Epistaxis , Hearing loss, Throat pain Respiratory: Reports: As per HPI. Denies: Cough, Dyspnea, Hemoptysis, Stridor, Wheezes Cardiovascular: Reports: As per HPI. Denies: Arrhythmia, Chest pain, Dyspnea on exertion, Edema, Murmurs, Orthopnea, Palpitations, Paroxysmal nocturnal dyspnea, Rheumatic Fever, Syncope Endocrine: Reports: As per HPI. Denies: Fatigue, Heat or cold intolerance, Polydipsia, Polyuria Gastrointestinal: Reports: As per HPI. Denies: Abdominal pain, Constipation, Diarrhea, Hematemesis, Hematochezia, Melena, Nausea, Vomiting Genitourinary: Reports: As per HPI. Denies: Abnormal menses, Discharge, Dyspareunia, Dysuria, Frequency, Hematuria, Incontinence, Retention, Urgency Musculoskeletal: Reports: As per HPI. Denies: Arthralgia, Back pain, Gout, Joint swelling, Myalgia, Neck pain Skin: Reports: As per HPI. Denies: Bruising, Change in color, Change in hair/ nails, Lesions, Pruritus, Rash Neurological: Reports: As per HPI. Denies: Abnormal gait, Confusion, Headache, Numbness, Paresthesias, Seizure, Tingling, Tremors, Vertigo, Weakness Psychiatric: Reports: As per HPI. Denies: Anxiety, Auditory hallucinations, Depression, Homicidal thoughts, Suicidal thoughts, Visual hallucinations Hematological/Lymphatic: Reports: As per HPI. Denies: Anemia, Blood Clots, Easy bleeding, Easy bruising, Swollen glands Past Medical History - SOCIAL HISTORY Smoking Status: Current every day smoker Alcohol Use: None Drug Use: None - RESPIRATORY Hx Respiratory Disorders: No - CARDIOVASCULAR Hx Cardio Disorders: No - NEURO Hx Neuro Disorders: Yes Comment:: narcolepsy - GI Hx GI Disorders: No - Hx Genitourinary Disorders: No - ENDOCRINE Hx Endocrine Disorders: Yes Hx Diabetes: Yes - MUSCULOSKELETAL Hx Musculoskeletal Disorders: No - PSYCH Hx Psych Problems: No - HEMATOLOGY/ONCOLOGY Hx Hematology/Oncology Disorders: No Family Medical History Any Significant Family History?: Yes Hx Cancer: Grandparents Hx Diabetes: Grandparents Hx Heart Disease: Grandparents Hx Stroke: Grandparents *Stroke Comment: cousin Physical Exam - General General Appearance: Alert, Oriented x3, Cooperative, Mild distress - Head Head exam: Normal inspection - Eye Eye exam: Normal appearance, PERRL, EOMI Pupils: Normal accommodation - ENT ENT exam: Normal exam, Mucous membranes moist, Normal external ear exam, Normal orophraynx Ear exam: Normal external inspection. negative: External canal tenderness Nasal Exam: Normal inspection. negative: Discharge, Sinus tenderness Mouth exam: Normal external inspection, Tongue normal Teeth exam: Normal inspection. negative: Dental caries Throat exam: Normal inspection. negative: Tonsillar erythema, Tonsillar exudate - Neck Neck exam: Normal inspection, Full ROM. negative: Tenderness - Respiratory Respiratory exam: Normal lung sounds bilaterally. negative: Respiratory distress - Cardiovascular Cardiovascular Exam: Regular rate, Normal rhythm, Normal heart sounds - GI/Abdominal GI/Abdominal exam: Soft, Normal bowel sounds. negative: Tenderness - Rectal Rectal exam: Deferred - exam: Deferred - Extremities Extremities exam: Normal inspection, Full ROM, Normal capillary refill, Tenderness (swelling ovr lat malleolus) - Back Back exam: Reports: Normal inspection, Full ROM. Denies: Muscle spasm, Rash noted, Tenderness - Neurological Neurological exam: Alert, CN II-XII intact, Normal gait, Oriented X3 - Psychiatric Psychiatric exam: Normal affect, Normal mood - Skin Skin exam: Dry, Intact, Normal color, Warm Course Vital Signs 01/29/18 20:22 Temperature 98 F Pulse Rate [ 82 Pulse Ox Probe] Respiratory 20 Rate Blood Pressure 129/79 [Left Arm] Pulse Ox 100 Disposition Disposition: Discharge Clinical Impression: Ankle sprain Qualifiers: Encounter type: initial encounter Involved ligament of ankle: unspecified ligament Laterality: right Qualified Code(s): S93.401A - Sprain of unspecified ligament of right ankle, initial encounter Disposition: Home, Self-Care Condition: (1) Good Instructions: Ankle Sprain (ED) Additional Instructions: follow up with family doctor. return sooner if worse. ice and elevate. motrin for pain with food Forms: Patient Portal Access Quality - Quality Measures Quality Measures: N/A - Blood Pressure Screening Does Patient Have Any of the Following: No Blood Pressure Classification: Pre-Hypertensive BP Reading Systolic Measurement: 129 Diastolic Measurement: 79 Screening for High Blood Pressure: < Pre-Hypertensive BP, F/U Documented > [ G8950] Pre-Hypertensive Follow-up Interventions: Follow-up with rescreen every year.
--- NOTE | 2018-02-01 08:28 | RADIOLOGY REPORT ---
EXAM: RIGHT ANKLE HISTORY: PAIN. TECHNIQUE: Three views of the right ankle were performed. FINDINGS: No evidence of fracture or dislocation. No lytic or blastic lesion. There is soft tissue swelling. IMPRESSION: NEGATIVE FOR FRACTURE. THERE IS SOFT TISSUE SWELLING. JOB NUMBER: [id number] MTDD
== END 2018-01-29 21:39 | disposition home or self-care (01) ==
LOC: ER 20:06
DX: S93.401A Sprain of unspecified ligament of right ankle, initial encounter (principal); X50.0XXA Overexertion from strenuous movement or load, initial encounter; E11.9 Type 2 diabetes mellitus without complications; Y92.009 Unspecified place in unspecified non-institutional (private) residence as the place of occurrence of the external cause; F17.210 Nicotine dependence, cigarettes, uncomplicated
CPT/HCPCS: 99283

== ENCOUNTER 2018-09-05 10:27 | Emergency (ER) | payer SELFPAY ==
[2018-09-05] MEDS ORDERED: Diph,Pert(Acell),Tet Vac 0.5 ML SYR IM ONE (12:21)
--- NOTE | 2018-09-05 12:26 | Emergency Department Record ---
History of Present Illness - General Chief complaint: Rash Stated complaint: Chemical exposure Time Seen by Provider: 09/05/18 12:18 Mode of Arrival: Ambulatory - History of Present Illness Initial comments: 9am got chemicals on the hands and wrist at work with burning and irritation no blisters. Patient washed hands at worked and took her clothes off and in a paper gown and came to the hospital and area was washed for 10 minutes. the hands are red but feel better. No other spots involved. Onset/Timin -: Minutes(s) Severity: Mild Severity scale (1-10): 3 Quality: Aching Consistency: Constant - Related Data Home Medications Medication Instructions Recorded Confirmed Last Taken Omeprazole 20 mg PO DAILY 09/05/18 09/05/18 1 Day Ago ~09/04/18 Allergies Allergy/AdvReac Type Severity Reaction Status Date / Time No Known Drug Allergies Allergy Verified 09/05/18 10:43 Travel Screening - Travel/Exposure Within Last 30 Days Have you traveled within the last 30 days?: No - Travel/Exposure Within Last Year Have you traveled outside the [place] in the last year?: No - Additonal Travel Details Have you been exposed to anyone with a communicable illness?: No - Travel Symptoms Symptom Screening: None Review of Systems Reviewed: No additional complaints except as noted below Constitutional: Reports: As per HPI. Denies: Chills, Fever, Malaise, Night sweats, Weakness, Weight change Eyes: Reports: As per HPI. Denies: Eye discharge, Eye pain, Photophobia, Vision change ENT: Reports: As per HPI. Denies: Congestion, Dental pain, Ear pain, Epistaxis , Hearing loss, Throat pain Respiratory: Reports: As per HPI. Denies: Cough, Dyspnea, Hemoptysis, Stridor, Wheezes Cardiovascular: Reports: As per HPI. Denies: Arrhythmia, Chest pain, Dyspnea on exertion, Edema, Murmurs, Orthopnea, Palpitations, Paroxysmal nocturnal dyspnea, Rheumatic Fever, Syncope Endocrine: Reports: As per HPI. Denies: Fatigue, Heat or cold intolerance, Polydipsia, Polyuria Gastrointestinal: Reports: As per HPI. Denies: Abdominal pain, Constipation, Diarrhea, Hematemesis, Hematochezia, Melena, Nausea, Vomiting Genitourinary: Reports: As per HPI. Denies: Abnormal menses, Discharge, Dyspareunia, Dysuria, Frequency, Hematuria, Incontinence, Retention, Urgency Musculoskeletal: Reports: As per HPI. Denies: Arthralgia, Back pain, Gout, Joint swelling, Myalgia, Neck pain Skin: Reports: As per HPI. Denies: Bruising, Change in color, Change in hair/ nails, Lesions, Pruritus, Rash Neurological: Reports: As per HPI. Denies: Abnormal gait, Confusion, Headache, Numbness, Paresthesias, Seizure, Tingling, Tremors, Vertigo, Weakness Psychiatric: Reports: As per HPI. Denies: Anxiety, Auditory hallucinations, Depression, Homicidal thoughts, Suicidal thoughts, Visual hallucinations Hematological/Lymphatic: Reports: As per HPI. Denies: Anemia, Blood Clots, Easy bleeding, Easy bruising, Swollen glands Past Medical History - SOCIAL HISTORY Smoking Status: Current every day smoker Alcohol Use: None Drug Use: None - RESPIRATORY Hx Respiratory Disorders: No - CARDIOVASCULAR Hx Cardio Disorders: No - NEURO Hx Neuro Disorders: Yes Comment:: narcolepsy - GI Hx GI Disorders: No - Hx Genitourinary Disorders: No - ENDOCRINE Hx Endocrine Disorders: Yes Hx Diabetes: Yes - MUSCULOSKELETAL Hx Musculoskeletal Disorders: No - PSYCH Hx Psych Problems: No - HEMATOLOGY/ONCOLOGY Hx Hematology/Oncology Disorders: No Family Medical History Any Significant Family History?: Yes Hx Cancer: Grandparents Hx Diabetes: Grandparents Hx Heart Disease: Grandparents Hx Stroke: Grandparents *Stroke Comment: cousin Physical Exam - General General Appearance: Alert, Oriented x3, Cooperative, No acute distress - Head Head exam: Normal inspection - Eye Eye exam: Normal appearance, PERRL Pupils: Normal accommodation - ENT ENT exam: Normal exam, Mucous membranes moist, Normal external ear exam, Normal orophraynx, TM's normal bilaterally Ear exam: Normal external inspection. negative: External canal tenderness Nasal Exam: Normal inspection. negative: Discharge, Sinus tenderness Mouth exam: Normal external inspection, Tongue normal Teeth exam: Normal inspection. negative: Dental caries Throat exam: Normal inspection. negative: Tonsillar erythema, Tonsillar exudate - Neck Neck exam: Normal inspection, Full ROM. negative: Tenderness - Respiratory Respiratory exam: Normal lung sounds bilaterally. negative: Respiratory distress - Cardiovascular Cardiovascular Exam: Regular rate, Normal rhythm, Normal heart sounds - GI/Abdominal GI/Abdominal exam: Soft, Normal bowel sounds. negative: Tenderness - Rectal Rectal exam: Deferred - exam: Deferred - Extremities Extremities exam: Normal inspection, Full ROM, Normal capillary refill. negative: Tenderness - Back Back exam: Reports: Normal inspection, Full ROM. Denies: Muscle spasm, Rash noted, Tenderness - Neurological Neurological exam: Alert, Normal gait, Oriented X3, Reflexes normal - Psychiatric Psychiatric exam: Normal affect, Normal mood - Skin Skin exam: Dry, Intact, Normal color, Warm Course Vital Signs 09/05/18 10:38 Temperature 98.7 F Pulse Rate 82 Respiratory 16 Rate Blood Pressure 111/59 Pulse Ox 96 - Reevaluation(s) Reevaluation #1: reviewed chemical sheets sent to us, [id number] Resin 09/05/18 12:28 Disposition Clinical Impression: Chemical burn Disposition: Home, Self-Care Condition: (1) Good Instructions: Chemical Skin Burn (ED) Additional Instructions: wash twice a day with soap and apply triple antibiotic ointment for 5 days and also use moisturizing cream PRN follow up with rachel Sebastian in one week motrin 2 pills three times a day benadryl 25 mg three times a day may return to work tomorrow Time of Disposition: 12:26 Quality - Quality Measures Quality Measures: N/A - Blood Pressure Screening Does Patient Have Any of the Following: No Blood Pressure Classification: Normal BP Reading Systolic Measurement: 111 Diastolic Measurement: 59 Screening for High Blood Pressure: < Normal BP, F/U Not Required > [G8783]
[2018-09-05 12:28] LABS: AMPHETAMINE SCREEN URINE NOT DETECTED; BARBITURATE SCREEN URINE NOT DETECTED; BENZODIAZEPINE SCREEN URINE NOT DETECTED; COCAINE SCREEN URINE NOT DETECTED; METHADONE SCREEN URINE NOT DETECTED; METHAMPHETAMINE SCREEN NOT DETECTED; OPIATE SCREEN URINE NOT DETECTED; PHENCYCLIDINE SCREEN URINE NOT DETECTED; PROPOXYPHENE SCREEN URINE NOT DETECTED; THC SCREEN URINE NOT DETECTED
== END 2018-09-05 12:48 | disposition home or self-care (01) ==
LOC: ER 10:27
DX: T65.891A Toxic effect of other specified substances, accidental (unintentional), initial encounter (principal); T23.59 Corrosion of first degree of multiple sites of wrist and hand; Y92.63 Factory as the place of occurrence of the external cause; Y99.0 Civilian activity done for income or pay; E11.9 Type 2 diabetes mellitus without complications; F17.210 Nicotine dependence, cigarettes, uncomplicated
CPT/HCPCS: 80305; 90715; 96372; 99283

== ENCOUNTER 2018-12-28 22:38 | Emergency (ER) | payer SELFPAY ==
--- NOTE | 2018-12-28 22:59 | Emergency Department Record ---
History of Present Illness - General Chief Complaint: Ankle/Foot Injury Stated Complaint: INJURY TO RT FOOT Time Seen by Provider: 12/28/18 22:55 Source: Patient Mode of Arrival: Ambulatory Limitations: No limitations - History of Present Illness Initial Comments: 33 yo female presents to ED for evaluation of pain over the right middle toe after a large bag of frozen fish fell out of the freezer onto her toe this evening. Patient reports taking Ibuprofen prior to arrival, denies other injury on examination. Patient reports pain with ROM and palpation. Patient denies health problems at her baseline. MD Complaint: Foot injury Onset/Timin -: Minutes(s) Injury: Foot: Right Type of Injury: Blunt Place: Home Severity scale (1-10): 3 Improves With: Immobilization Worsens With: Palpation Context: Direct blow Associated Symptoms: Able to partially bear weight - Related Data Allergies Allergy/AdvReac Type Severity Reaction Status Date / Time No Known Drug Allergies Allergy Verified 09/05/18 10:43 Travel Screening - Travel/Exposure Within Last 30 Days Have you traveled within the last 30 days?: No Review of Systems Constitutional: Denies: Chills, Fever, Malaise, Night sweats Eyes: Denies: Eye discharge, Eye pain ENT: Denies: Congestion, Ear pain, Epistaxis Respiratory: Denies: Cough, Dyspnea Cardiovascular: Denies: Chest pain, Dyspnea on exertion Endocrine: Denies: Fatigue, Heat or cold intolerance Gastrointestinal: Denies: Abdominal pain, Nausea, Vomiting Genitourinary: Denies: Incontinence, Retention Musculoskeletal: Reports: Arthralgia. Denies: Back pain, Gout, Joint swelling Skin: Denies: Bruising, Change in color Neurological: Denies: Abnormal gait, Confusion, Headache, Seizure Psychiatric: Denies: Anxiety Hematological/Lymphatic: Denies: Anemia, Blood Clots Past Medical History - SOCIAL HISTORY Smoking Status: Current every day smoker Alcohol Use: None Drug Use: None - RESPIRATORY Hx Respiratory Disorders: No - CARDIOVASCULAR Hx Cardio Disorders: No - NEURO Hx Neuro Disorders: Yes Comment:: narcolepsy - GI Hx GI Disorders: No - Hx Genitourinary Disorders: No - ENDOCRINE Hx Endocrine Disorders: Yes Hx Diabetes: Yes - MUSCULOSKELETAL Hx Musculoskeletal Disorders: No - PSYCH Hx Psych Problems: No - HEMATOLOGY/ONCOLOGY Hx Hematology/Oncology Disorders: No Family Medical History Any Significant Family History?: Yes Hx Cancer: Grandparents Hx Diabetes: Grandparents Hx Heart Disease: Grandparents Hx Stroke: Grandparents *Stroke Comment: cousin Physical Exam - General General Appearance: Alert, Oriented x3, Cooperative, Mild distress, Anxious Limitations: No limitations - Head Head exam: Atraumatic, Normocephalic, Normal inspection Head exam detail: negative: Abrasion, Contusion, Valdes's sign, General tenderness, Hematoma, Laceration - Eye Eye exam: Normal appearance. negative: Conjunctival injection, Periorbital swelling, Periorbital tenderness, Scleral icterus - ENT Ear exam: negative: Auricular hematoma, Auricular trauma Nasal Exam: negative: Active bleeding, Discharge, Dried blood, Foreign body Mouth exam: negative: Drooling, Laceration, Muffled voice, Tongue elevation - Neck Neck exam: Normal inspection. negative: Meningismus, Tenderness - Respiratory Respiratory exam: Normal lung sounds bilaterally. negative: Rales, Respiratory distress, Rhonchi, Stridor - Cardiovascular Cardiovascular Exam: Regular rate, Normal rhythm, Normal heart sounds - GI/Abdominal GI/Abdominal exam: Soft. negative: Rebound, Rigid, Tenderness - Rectal Rectal exam: Deferred - exam: Deferred - Extremities Extremities exam: Tenderness, Other (TTP over the right middle toe, strong DPP present. No pain over the ankle or lower extremity.). negative: Calf tenderness, Pedal edema - Back Back exam: Denies: CVA tenderness (R), CVA tenderness (L) - Neurological Neurological exam: Alert, Oriented X3 - Psychiatric Psychiatric exam: Anxious - Skin Skin exam: Normal color. negative: Abrasion Type of lesion: negative: abrasion Course Vital Signs 12/28/18 22:45 Temperature 97.9 F Pulse Rate [ 86 Left] Respiratory 18 Rate Blood Pressure 110/75 [Left Arm] Pulse Ox 96 - Reevaluation(s) Reevaluation #1: 12/28/18 23:08 Right Foot: Negative Patient was updated on her radiograph results Symptoms appears c/w foot contusion. Patient appears stable for discharge at this time with post-op shoe. Disposition Disposition: Discharge Clinical Impression: Foot contusion Qualifiers: Encounter type: initial encounter Laterality: right Qualified Code(s): S90.31XA - Contusion of right foot, initial encounter Disposition: Home, Self-Care Condition: (2) Stable Instructions: Foot Contusion (ED) Additional Instructions: Return to ED if your symptoms worsen or if you have any concerns. Ice, Ibuprofen as directed. Follow-up with your family doctor in 3-5 days as directed. Forms: Patient Portal Access Time of Disposition: 23:10 Quality - Quality Measures Quality Measures: N/A - Blood Pressure Screening Does Patient Have Any of the Following: No Blood Pressure Classification: Normal BP Reading Systolic Measurement: 110 Diastolic Measurement: 75 Screening for High Blood Pressure: < Normal BP, F/U Not Required > [G8783]
--- NOTE | 2018-12-30 20:58 | RADIOLOGY REPORT ---
EXAM: FOOT, RIGHT 3 VIEWS HISTORY: DROPPED BAG OF FISH ON FOOT, PAIN NEAR BASE OF THIRD TOE. TECHNIQUE: Three views of the right foot. COMPARISON: None. FINDINGS: Mild dorsal forefoot soft tissue swelling. No acute fracture is seen. No dislocation. IMPRESSION: MILD SOFT TISSUE SWELLING. NO ACUTE OSSEOUS FINDINGS. JOB NUMBER: [id number] MTDD
== END 2018-12-28 23:18 | disposition home or self-care (01) ==
LOC: ER 22:38
DX: S90.31XA Contusion of right foot, initial encounter (principal); M79.674 Pain in right toe(s); E11.9 Type 2 diabetes mellitus without complications; F17.210 Nicotine dependence, cigarettes, uncomplicated; W22.8XXA Striking against or struck by other objects, initial encounter; Y92.000 Kitchen of unspecified non-institutional (private) residence as the place of occurrence of the external cause
CPT/HCPCS: 99283

== ENCOUNTER 2019-03-04 23:20 | Emergency (ER) | payer MEDICAID ==
[2019-03-04] MEDS ORDERED: KETOROLAC 30 MG/ML VIAL IVP ONE (23:43)
[2019-03-04] MEDS ORDERED: 0.9 % SODIUM CHLORIDE 1000ML 1,000 ML IV SCH (23:45)
--- NOTE | 2019-03-04 23:52 | Emergency Department Record ---
History of Present Illness - General Chief complaint: Vaginal bleeding Stated complaint: ABDOMINAL PAIN Time Seen by Provider: 03/04/19 23:23 Source: Patient Mode of Arrival: Ambulatory Limitations: No limitations - History of Present Illness Initial comments: 33 yo female presents to ED for evaluation of suprapubic abdominal pain and vaginal bleeding (heavy) for the past 3 hours. Patient denies the use of anticoagulation medications, reports history of tubal ligation 9 years ago. Patient reports urinary frequency, denies fevers, chills, or recent illness. Patient denies change in stools. MD Complaint: Dysuria, Vaginal bleeding Onset/Timin -: Hour(s) Location: Perineum, Other Radiation: Non-radiating Severity: Moderate Quality: Cramping Consistency: Constant Improves with: None Worsens with: None Associated Symptoms: Vaginal bleeding - Related Data Home Medications Medication Instructions Recorded Confirmed Last Taken Sitagliptin Phos/Metformin HCl 1 tab PO DAILY 03/04/19 03/04/19 Unknown [Janumet 50-1,000 mg Tablet] Allergies Allergy/AdvReac Type Severity Reaction Status Date / Time No Known Drug Allergies Allergy Verified 03/04/19 23:39 Travel Screening - Travel/Exposure Within Last 30 Days Have you traveled within the last 30 days?: No - Travel/Exposure Within Last Year Have you traveled outside the [place] in the last year?: No - Travel Symptoms Symptom Screening: None Review of Systems Constitutional: Denies: Chills, Fever, Malaise, Night sweats Eyes: Denies: Eye discharge, Eye pain ENT: Denies: Congestion, Ear pain, Epistaxis Respiratory: Denies: Cough, Dyspnea Cardiovascular: Denies: Chest pain, Dyspnea on exertion Endocrine: Denies: Fatigue, Heat or cold intolerance Gastrointestinal: Reports: Abdominal pain. Denies: Constipation, Diarrhea, Nausea, Vomiting Genitourinary: Reports: Abnormal menses, Dysuria. Denies: Incontinence, Retention Musculoskeletal: Denies: Arthralgia, Back pain Skin: Denies: Bruising, Change in color Neurological: Denies: Abnormal gait, Confusion, Headache, Seizure Psychiatric: Denies: Anxiety Hematological/Lymphatic: Denies: Anemia, Blood Clots Past Medical History - SOCIAL HISTORY Smoking Status: Current every day smoker - RESPIRATORY Hx Respiratory Disorders: No - CARDIOVASCULAR Hx Cardio Disorders: No - NEURO Hx Neuro Disorders: Yes Comment:: narcolepsy - GI Hx GI Disorders: No - Hx Genitourinary Disorders: No - ENDOCRINE Hx Endocrine Disorders: Yes Hx Diabetes: Yes - MUSCULOSKELETAL Hx Musculoskeletal Disorders: No - PSYCH Hx Psych Problems: No - HEMATOLOGY/ONCOLOGY Hx Hematology/Oncology Disorders: No Family Medical History Any Significant Family History?: No Hx Cancer: Grandparents Hx Diabetes: Grandparents Hx Heart Disease: Grandparents Hx Stroke: Grandparents *Stroke Comment: cousin Physical Exam - General General Appearance: Alert, Oriented x3, Cooperative, Moderate distress (Appears uncomfortable on examination) Limitations: No limitations - Head Head exam: Atraumatic, Normocephalic, Normal inspection Head exam detail: negative: Abrasion, Contusion, Valdes's sign, General tenderness, Hematoma, Laceration - Eye Eye exam: Normal appearance. negative: Conjunctival injection, Periorbital swelling, Periorbital tenderness, Scleral icterus - ENT Ear exam: negative: Auricular hematoma, Auricular trauma Nasal Exam: negative: Active bleeding, Discharge, Dried blood, Foreign body Mouth exam: negative: Drooling, Laceration, Muffled voice, Tongue elevation - Neck Neck exam: Normal inspection. negative: Meningismus, Tenderness - Respiratory Respiratory exam: Normal lung sounds bilaterally. negative: Rales, Respiratory distress, Rhonchi, Stridor - Cardiovascular Cardiovascular Exam: Regular rate, Normal rhythm, Normal heart sounds - GI/Abdominal GI/Abdominal exam: Soft, Tenderness (Mild-moderate TTP to the suprapubic region on examination, no rebound or guareding symptoms are present.). negative: Rebound, Rigid - Rectal Rectal exam: Deferred - exam: Normal external exam, Vaginal bleeding (Small amount clot present in the vaginal vault, no active bleeding is present on examination.). negative: Vaginal discharge, Vaginal erythema - Extremities Extremities exam: Normal inspection. negative: Calf tenderness, Pedal edema, Tenderness - Back Back exam: Denies: CVA tenderness (R), CVA tenderness (L) - Neurological Neurological exam: Alert, Normal gait, Oriented X3 - Psychiatric Psychiatric exam: Anxious - Skin Skin exam: Normal color. negative: Abrasion Type of lesion: negative: abrasion Course Vital Signs 03/04/19 23:44 Temperature 97.6 F Pulse Rate 95 H Respiratory 24 Rate Blood Pressure 113/84 Pulse Ox 97 - Reevaluation(s) Reevaluation #1: 03/05/19 00:52 Laboratory studies were reviewed and appear grossly unremarkable for an acute process except for the following: Hgb: 10 (previous 10-12) UA: TNTC WBC: 0-2 Bacteria None Pelvic examination was performed, small amount of clot present with no active bleeding present. Patient reports that her pain symptoms are greatly improved following Toradol, symptoms appear c/w DUB. Patient appears stable for discharge at this time with instructions to follow-up with her PCP, return to ED if her bleeding symptoms worsen. Medical Decision Making - Lab Data Result diagrams: 03/05/19 00:10 03/05/19 00:10 Disposition Disposition: Discharge Clinical Impression: DUB (dysfunctional uterine bleeding) Disposition: Home, Self-Care Condition: (2) Stable Instructions: Dysfunctional Uterine Bleeding (ED) Additional Instructions: Return to ED if your symptoms worsen or if you have any concerns. Follow-up with your family doctor in 3-5 days as directed. Forms: Patient Portal Access Time of Disposition: 00:54 Quality - Quality Measures Quality Measures: N/A - Blood Pressure Screening Does Patient Have Any of the Following: No Blood Pressure Classification: Pre-Hypertensive BP Reading Systolic Measurement: 113 Diastolic Measurement: 84 Screening for High Blood Pressure: < Pre-Hypertensive BP, F/U Documented > [G8950] Pre-Hypertensive Follow-up Interventions: Referral to alternative/primary care provider.
[2019-03-05 00:17] LABS: BASO % 0.4 % (0-6); GRAN % 76.5 % (47-80); HEMATOCRIT 34.4 % (35.0-47.0); LYMPH % 14.4 % (16-45); MEAN CELL VOLUME 78.5 fl (81-97); MEAN CORPUSCULAR HEMOGLOBIN 22.8 pg (27-33); MEAN CORPUSCULAR HGB CONC 29.1 g/dl (32-36); MEAN PLATELET VOLUME 11.9 fl (7.4-10.4); MONO % 7.7 % (0-9); PLATELET COUNT 222 K/uL (130-400); RED BLOOD COUNT 4.38 M/uL (3.80-5.40); RED CELL DISTRIBUTION WIDTH 16.3 % (11.5-14.5); WHITE BLOOD COUNT W/O DIFF 10.3 K/uL (4.2-12.2)
[2019-03-05 00:21] LABS: HCG,QUALITATIVE URINE NEGATIVE (NEGATIVE)
[2019-03-05 00:22] LABS: URINE APPEARANCE SL CLOUDY; URINE BILIRUBIN NEGATIVE (NEGATIVE); URINE BLOOD LARGE (NEGATIVE); URINE COLOR RED; URINE GLUCOSE (UA) >=1000 mg/dL (NEGATIVE); URINE KETONE NEGATIVE (NEGATIVE)
[2019-03-05 00:25] LABS: URINE BACTERIA NONE SEEN; URINE EPITHELIAL CELLS NONE SEEN (FEW); URINE LEUKOCYTE ESTERASE SMALL (NEGATIVE); URINE NITRITE POSITIVE (NEGATIVE); URINE WBC NONE SEEN (0-2/hpf)
[2019-03-05 00:26] LABS: BLOOD UREA NITROGEN 14 mg/dL (6-20); CREATININE 0.7 mg/dL (0.5-0.9); EST GLOMERULAR FILTRATION RATE > 60 mL/min
[2019-03-05 00:28] LABS: GLUCOSE,RANDOM 449 mg/dL (74-109)
[2019-03-05 00:31] LABS: ALBUMIN 4.5 g/dL (4.0-5.0); ALT/SGPT 45 U/L (<33); AST/SGOT 40 U/L (10.0-35.0)
[2019-03-05 00:32] LABS: ALB/GLOB RATIO 1.7 (1.1-1.8); ALKALINE PHOSPHATASE 110 U/L (35-104); TOTAL PROTEIN 7.1 g/dL (6.6-8.7)
== END 2019-03-05 01:14 | disposition home or self-care (01) ==
LOC: ER 23:20
DX: N93.8 Other specified abnormal uterine and vaginal bleeding (principal); R30.0 Dysuria; F17.210 Nicotine dependence, cigarettes, uncomplicated
CPT/HCPCS: 99284 ×2; 96374; 85025; 80053; 81001; 81025; J1885; J7030